=== PATIENT | female | born 1955 | race Caucasian/White ===

== ENCOUNTER 2017-09-28 08:23 | Inpatient (IN) | payer OTHER ==
[~2017-09-28] VITALS: Ht 152.4 cm; Wt 64.5 kg
[~2017-09-28 08:23] MED LIST: ALBU90OI INH; BUSP15 PO; CALCAVITD PO; DOCU100 PO; EPCLUSA 400 MG1 EACH PO; EPIN.3I IM; FLUSAL2505 INH; Omeprazole20 M1 PO; PRED20 PO; ROXICODONE5 MG PO; SPIR50 PO
[2017-09-28 09:01] LABS: BASOPHILS ABSOLUTE AUTO 0.03 K/mm3 (0.00-0.23); BASOPHILS PERCENT AUTO 1 % (0-2); EOSINOPHILS ABSOLUTE AUTO 0.03 K/mm3 (0.00-0.68); EOSINOPHILS PERCENT AUTO 1 % (0-6); Hematocrit 24.4 % (33.0-51.0); Hemoglobin 7.2 g/dL (11.5-16.0); IMMATURE GRAN ABSOLUTE AUTO 0.05 K/mm3 (0.00-0.10); IMMATURE GRAN PERCENT AUTO 1 % (0-1); LYMPHOCYTES ABSOLUTE AUTO 1.23 K/mm3 (0.84-5.20); LYMPHOCYTES PERCENT AUTO 20 % (21-46); MONOCYTES ABSOLUTE AUTO 1.13 K/mm3 (0.16-1.47); MONOCYTES PERCENT AUTO 18 % (4-13); Mean Corpuscular HGB 23.8 pg (26.0-34.0); Mean Corpuscular HGB Conc 29.5 g/dL (31.5-36.5); Mean Corpuscular Volume 81 fL (80-100); Mean Platelet Volume 10.2 fL (9.1-12.4); NEUTROPHILS ABSOLUTE AUTO 3.82 K/mm3 (1.96-9.15); NEUTROPHILS PERCENT AUTO 61 % (41-73); NRBC ABSOLUTE 0.04 K/mm3 (0.00-0.02); NRBC Auto 0.6 /100 WBC (0.0-0.2); Platelet Count 84 K/mm3 (150-400); RDW Coefficient Variation 20.5 % (11.7-14.2); RDW Standard Deviation 59.8 fL (35.1-46.3); Red Blood Cell Count 3.03 M/mm3 (3.80-5.20); White Blood Cell Count 6.29 K/mm3 (4.00-11.30)
[2017-09-28] MEDS ORDERED: Restoril15 MG PO (09:08)
[2017-09-28 09:20] LABS: Alanine Aminotransfer (ALT/SGP 33 U/L (12-78); Albumin/Globulin Ratio 0.7 (0.8-1.8); Alk Phos 112 U/L (50-136); Anion Gap 12 mmol/L (6-16); Aspartate Aminotrans (AST/SGOT 39 U/L (12-37); Bilirubin, Total 1.7 mg/dL (0.1-1.0); Blood Urea Nitrogen 22 mg/dL (8-24); Bun/Creatinine Ratio 44.7 (12.0-20.0); CO2, Blood 20 mmol/L (21-32); Calcium, Blood 8.5 mg/dL (8.5-10.1); Chloride, Blood 109 mmol/L (98-108); Creatinine, Blood 0.49 mg/dL (0.40-1.00); Globulin, Blood 4.4 g/dL (2.2-4.0); Glomerular Filtration Rate >60 (60-); Glucose, Blood 134 mg/dL (70-99); Potassium, Blood 4.1 mmol/L (3.5-5.5); Sodium, Blood 141 mmol/L (136-145); Total Protein, Blood 7.4 g/dL (6.4-8.2)
[2017-09-28 11:10] LABS: International Normalized Ratio 1.6; Prothrombin Time Results 16.9 Sec (9.7-11.5)
[2017-09-28 19:50] LABS: BASOPHILS ABSOLUTE AUTO 0.01 K/mm3 (0.00-0.23); BASOPHILS PERCENT AUTO 0 % (0-2); EOSINOPHILS ABSOLUTE AUTO 0.03 K/mm3 (0.00-0.68); EOSINOPHILS PERCENT AUTO 1 % (0-6); Hematocrit 21.8 % (33.0-51.0); Hemoglobin 6.6 g/dL (11.5-16.0); IMMATURE GRAN ABSOLUTE AUTO 0.03 K/mm3 (0.00-0.10); IMMATURE GRAN PERCENT AUTO 1 % (0-1); LYMPHOCYTES ABSOLUTE AUTO 1.19 K/mm3 (0.84-5.20); LYMPHOCYTES PERCENT AUTO 27 % (21-46); MONOCYTES ABSOLUTE AUTO 0.81 K/mm3 (0.16-1.47); MONOCYTES PERCENT AUTO 19 % (4-13); Mean Corpuscular HGB 24.6 pg (26.0-34.0); Mean Corpuscular HGB Conc 30.3 g/dL (31.5-36.5); Mean Corpuscular Volume 81 fL (80-100); Mean Platelet Volume 9.4 fL (9.1-12.4); NEUTROPHILS ABSOLUTE AUTO 2.31 K/mm3 (1.96-9.15); NEUTROPHILS PERCENT AUTO 53 % (41-73); NRBC ABSOLUTE 0.03 K/mm3 (0.00-0.02); NRBC Auto 0.7 /100 WBC (0.0-0.2); RDW Coefficient Variation 18.9 % (11.7-14.2); RDW Standard Deviation 54.5 fL (35.1-46.3); Red Blood Cell Count 2.68 M/mm3 (3.80-5.20); White Blood Cell Count 4.38 K/mm3 (4.00-11.30)
[2017-09-28 20:34] LABS: Platelet Count 43 K/mm3 (150-400)
[2017-09-29 02:48] LABS: BASOPHILS ABSOLUTE AUTO 0.02 K/mm3 (0.00-0.23); BASOPHILS PERCENT AUTO 1 % (0-2); EOSINOPHILS ABSOLUTE AUTO 0.06 K/mm3 (0.00-0.68); EOSINOPHILS PERCENT AUTO 1 % (0-6); Hematocrit 24.3 % (33.0-51.0); Hemoglobin 7.4 g/dL (11.5-16.0); IMMATURE GRAN ABSOLUTE AUTO 0.03 K/mm3 (0.00-0.10); IMMATURE GRAN PERCENT AUTO 1 % (0-1); LYMPHOCYTES ABSOLUTE AUTO 1.36 K/mm3 (0.84-5.20); LYMPHOCYTES PERCENT AUTO 31 % (21-46); MONOCYTES ABSOLUTE AUTO 0.67 K/mm3 (0.16-1.47); MONOCYTES PERCENT AUTO 15 % (4-13); Mean Corpuscular HGB 24.6 pg (26.0-34.0); Mean Corpuscular HGB Conc 30.5 g/dL (31.5-36.5); Mean Corpuscular Volume 81 fL (80-100); Mean Platelet Volume 9.3 fL (9.1-12.4); NEUTROPHILS ABSOLUTE AUTO 2.22 K/mm3 (1.96-9.15); NEUTROPHILS PERCENT AUTO 51 % (41-73); NRBC ABSOLUTE 0.02 K/mm3 (0.00-0.02); NRBC Auto 0.5 /100 WBC (0.0-0.2); RDW Coefficient Variation 18.6 % (11.7-14.2); RDW Standard Deviation 53.5 fL (35.1-46.3); Red Blood Cell Count 3.01 M/mm3 (3.80-5.20); White Blood Cell Count 4.36 K/mm3 (4.00-11.30)
[2017-09-29 02:52] LABS: Platelet Count 48 K/mm3 (150-400)
[2017-09-29 08:50] LABS: BASOPHILS ABSOLUTE AUTO 0.03 K/mm3 (0.00-0.23); BASOPHILS PERCENT AUTO 1 % (0-2); EOSINOPHILS ABSOLUTE AUTO 0.09 K/mm3 (0.00-0.68); EOSINOPHILS PERCENT AUTO 2 % (0-6); Hematocrit 25.5 % (33.0-51.0); IMMATURE GRAN ABSOLUTE AUTO 0.04 K/mm3 (0.00-0.10); IMMATURE GRAN PERCENT AUTO 1 % (0-1); LYMPHOCYTES ABSOLUTE AUTO 1.18 K/mm3 (0.84-5.20); LYMPHOCYTES PERCENT AUTO 30 % (21-46); MONOCYTES ABSOLUTE AUTO 0.58 K/mm3 (0.16-1.47); MONOCYTES PERCENT AUTO 15 % (4-13); Mean Corpuscular HGB 25.3 pg (26.0-34.0); Mean Corpuscular HGB Conc 31.4 g/dL (31.5-36.5); Mean Corpuscular Volume 81 fL (80-100); NEUTROPHILS PERCENT AUTO 51 % (41-73); NRBC ABSOLUTE 0.02 K/mm3 (0.00-0.02); NRBC Auto 0.5 /100 WBC (0.0-0.2); RDW Coefficient Variation 18.2 % (11.7-14.2); RDW Standard Deviation 52.3 fL (35.1-46.3); Red Blood Cell Count 3.16 M/mm3 (3.80-5.20); White Blood Cell Count 3.92 K/mm3 (4.00-11.30)
[2017-09-29 08:53] LABS: Platelet Count 40 K/mm3 (150-400)
[2017-09-29 15:08] LABS: BASOPHILS ABSOLUTE AUTO 0.03 K/mm3 (0.00-0.23); BASOPHILS PERCENT AUTO 1 % (0-2); EOSINOPHILS ABSOLUTE AUTO 0.08 K/mm3 (0.00-0.68); EOSINOPHILS PERCENT AUTO 2 % (0-6); Hematocrit 27.3 % (33.0-51.0); Hemoglobin 8.6 g/dL (11.5-16.0); IMMATURE GRAN ABSOLUTE AUTO 0.03 K/mm3 (0.00-0.10); IMMATURE GRAN PERCENT AUTO 1 % (0-1); LYMPHOCYTES ABSOLUTE AUTO 1.08 K/mm3 (0.84-5.20); LYMPHOCYTES PERCENT AUTO 29 % (21-46); MONOCYTES ABSOLUTE AUTO 0.59 K/mm3 (0.16-1.47); MONOCYTES PERCENT AUTO 16 % (4-13); Mean Corpuscular HGB 25.4 pg (26.0-34.0); Mean Corpuscular HGB Conc 31.5 g/dL (31.5-36.5); Mean Corpuscular Volume 81 fL (80-100); Mean Platelet Volume 9.8 fL (9.1-12.4); NEUTROPHILS PERCENT AUTO 51 % (41-73); NRBC ABSOLUTE 0.03 K/mm3 (0.00-0.02); NRBC Auto 0.8 /100 WBC (0.0-0.2); RDW Coefficient Variation 18.4 % (11.7-14.2); Red Blood Cell Count 3.38 M/mm3 (3.80-5.20); White Blood Cell Count 3.71 K/mm3 (4.00-11.30)
[2017-09-29 15:15] LABS: Platelet Count 44 K/mm3 (150-400)
[2017-09-30 06:15] LABS: BASOPHILS ABSOLUTE AUTO 0.02 K/mm3 (0.00-0.23); BASOPHILS PERCENT AUTO 1 % (0-2); EOSINOPHILS PERCENT AUTO 4 % (0-6); Hematocrit 25.8 % (33.0-51.0); Hemoglobin 7.9 g/dL (11.5-16.0); IMMATURE GRAN ABSOLUTE AUTO 0.02 K/mm3 (0.00-0.10); IMMATURE GRAN PERCENT AUTO 1 % (0-1); LYMPHOCYTES ABSOLUTE AUTO 0.87 K/mm3 (0.84-5.20); LYMPHOCYTES PERCENT AUTO 31 % (21-46); MONOCYTES ABSOLUTE AUTO 0.44 K/mm3 (0.16-1.47); MONOCYTES PERCENT AUTO 16 % (4-13); Mean Corpuscular HGB 25.2 pg (26.0-34.0); Mean Corpuscular HGB Conc 30.6 g/dL (31.5-36.5); Mean Corpuscular Volume 82 fL (80-100); Mean Platelet Volume 9.8 fL (9.1-12.4); NEUTROPHILS ABSOLUTE AUTO 1.35 K/mm3 (1.96-9.15); NEUTROPHILS PERCENT AUTO 48 % (41-73); RDW Coefficient Variation 19.2 % (11.7-14.2); RDW Standard Deviation 54.4 fL (35.1-46.3); Red Blood Cell Count 3.14 M/mm3 (3.80-5.20)
[2017-09-30 06:23] LABS: Platelet Count 40 K/mm3 (150-400)
[2017-09-30 06:32] LABS: Alanine Aminotransfer (ALT/SGP 27 U/L (12-78); Albumin, Blood 2.5 g/dL (3.4-5.0); Albumin/Globulin Ratio 0.7 (0.8-1.8); Alk Phos 82 U/L (50-136); Anion Gap 8 mmol/L (6-16); Aspartate Aminotrans (AST/SGOT 40 U/L (12-37); Bilirubin, Total 1.3 mg/dL (0.1-1.0); Blood Urea Nitrogen 10 mg/dL (8-24); Bun/Creatinine Ratio 15.8 (12.0-20.0); CO2, Blood 23 mmol/L (21-32); Calcium, Blood 7.7 mg/dL (8.5-10.1); Chloride, Blood 109 mmol/L (98-108); Creatinine, Blood 0.63 mg/dL (0.40-1.00); Globulin, Blood 3.4 g/dL (2.2-4.0); Glomerular Filtration Rate >60 (60-); Glucose, Blood 82 mg/dL (70-99); Magnesium, Blood 1.8 mg/dL (1.6-2.4); Potassium, Blood 3.6 mmol/L (3.5-5.5); Sodium, Blood 140 mmol/L (136-145); Total Protein, Blood 5.9 g/dL (6.4-8.2)
[2017-10-01 04:47] LABS: BASOPHILS ABSOLUTE AUTO 0.03 K/mm3 (0.00-0.23); BASOPHILS PERCENT AUTO 1 % (0-2); EOSINOPHILS ABSOLUTE AUTO 0.09 K/mm3 (0.00-0.68); EOSINOPHILS PERCENT AUTO 3 % (0-6); Hematocrit 27.1 % (33.0-51.0); Hemoglobin 8.3 g/dL (11.5-16.0); IMMATURE GRAN ABSOLUTE AUTO 0.02 K/mm3 (0.00-0.10); IMMATURE GRAN PERCENT AUTO 1 % (0-1); LYMPHOCYTES ABSOLUTE AUTO 0.89 K/mm3 (0.84-5.20); LYMPHOCYTES PERCENT AUTO 32 % (21-46); MONOCYTES ABSOLUTE AUTO 0.44 K/mm3 (0.16-1.47); MONOCYTES PERCENT AUTO 16 % (4-13); Mean Corpuscular HGB 25.3 pg (26.0-34.0); Mean Corpuscular HGB Conc 30.6 g/dL (31.5-36.5); Mean Corpuscular Volume 83 fL (80-100); Mean Platelet Volume 10.2 fL (9.1-12.4); NEUTROPHILS PERCENT AUTO 47 % (41-73); RDW Coefficient Variation 19.8 % (11.7-14.2); RDW Standard Deviation 55.3 fL (35.1-46.3); Red Blood Cell Count 3.28 M/mm3 (3.80-5.20); White Blood Cell Count 2.77 K/mm3 (4.00-11.30)
[2017-10-01 05:12] LABS: Platelet Count 38 K/mm3 (150-400)
[2017-10-01] MEDS ORDERED: PANT40 PO (16:40)
[2017-10-01] MEDS ORDERED: CIPR500 PO (16:41)
[2018-05-26] MEDS ORDERED: BUSP5 PO (13:27)
[2018-05-26] MEDS ORDERED: SOMA250 MG PO (13:28)
[2018-06-07] MEDS ORDERED: LORA.5 PO (14:48)
[2018-06-07] MEDS ORDERED: ALBU90OI INH (14:49)
[2018-06-07] MEDS ORDERED: CYCL10 PO (14:49)
[2018-06-07] MEDS ORDERED: DIPH50 PO (14:50)
[2018-06-07] MEDS ORDERED: Valium5 MG PO (17:02)
[2018-06-07] MEDS ORDERED: Norco 5-325 Ta1 EACH PO (19:09)
== END 2017-10-01 17:13 | disposition home or self-care (01) | DRG 369 ==
LOC: ER 08:23 → MEDS 12:08 → ICUW 12:08 → PCU 09-30 17:31 → MEDS 10-01 10:35
PROVIDERS: Emergency Medicine; Hospitalist; Internal Medicine; Internal Medicine Gastroenterology; Specialist
PROC: 30233N1 Transfusion of Nonautologous Red Blood Cells into Peripheral Vein, Percutaneous Approach (ICD-10-PCS; 2017-09-28)
PROC: 0W3P8ZZ Control Bleeding in Gastrointestinal Tract, Via Natural or Artificial Opening Endoscopic (ICD-10-PCS; principal; 2017-09-28 14:00)
DX: K22.6 Gastro-esophageal laceration-hemorrhage syndrome (principal); D61.818 Other pancytopenia; J90 Pleural effusion, not elsewhere classified; D62 Acute posthemorrhagic anemia; B18.2 Chronic viral hepatitis C; D69.6 Thrombocytopenia, unspecified; K22.2 Esophageal obstruction; K74.60 Unspecified cirrhosis of liver; Z88.0 Allergy status to penicillin; Z90.710 Acquired absence of both cervix and uterus
CPT/HCPCS: 36415; 36430; 76705; 80053; 82105; 82272; 83735; 85025; 85610; 86850; 86900; 86901; 86923; 93005; 93010; 96361; 96365; 96366; 96375; 96376; 99285; C9113; J0696; J2060; J2405; J2765; J7030; J7050; J7120; P9016

== ENCOUNTER 2020-06-20 10:52 | Emergency (ER) | payer OTHER ==
[~2020-06-20] VITALS: Ht 152.4 cm; Wt 55.8 kg
[~2020-06-20 10:52] MED LIST changes: +BUSP5 PO; +CIPR500 PO; +CYCL10 PO; +DIPH50 PO; +LORA.5 PO; +Norco 5-325 Ta1 EACH PO; +PANT40 PO; +Restoril15 MG PO; +SOMA250 MG PO; +Valium5 MG PO
[2020-06-20] MEDS ORDERED: Zanaflex2 M1 PO (13:42)
[2020-06-20] MEDS ORDERED: OMEP20ER PO (13:43)
[2020-06-20] MEDS ORDERED: Roxicodone5 MG PO (14:25)
[2020-06-20] MEDS ORDERED: Miralax17 GM PO (14:25)
== END 2020-06-20 15:40 | disposition home or self-care (01) ==
LOC: ER 10:52
DX: S12.110A Anterior displaced Type II dens fracture, initial encounter for closed fracture (principal); J90 Pleural effusion, not elsewhere classified; Z91.030 Bee allergy status; Z88.0 Allergy status to penicillin; Z79.899 Other long term (current) drug therapy; W19.XXXA Unspecified fall, initial encounter; Y93.89 Activity, other specified
CPT/HCPCS: 36415; 70450; 71045; 72125; 96374; 96375; 99284-25; J1170; J2060; L0160

== ENCOUNTER 2020-09-05 00:21 | Day surgery (SDC) | payer OTHER ==
[~2020-09-05 00:21] MED LIST changes: +Miralax17 GM PO; +OMEP20ER PO; +Roxicodone5 MG PO; +Zanaflex2 M1 PO
== END 2020-09-05 23:45 ==
LOC: WOUND 00:21
DX: L89.104 Pressure ulcer of unspecified part of back, stage 4 (principal); J45.909 Unspecified asthma, uncomplicated; S12.110D Anterior displaced Type II dens fracture, subsequent encounter for fracture with routine healing; W19.XXXD Unspecified fall, subsequent encounter; Z86.19 Personal history of other infectious and parasitic diseases; Z88.0 Allergy status to penicillin
CPT/HCPCS: A9270; G0463

== ENCOUNTER 2020-09-14 00:36 | Day surgery (SDC) | payer OTHER | END 2020-09-14 22:51 | disposition home or self-care (01) | LOC: WOUND 00:36 | DX: L89.104 Pressure ulcer of unspecified part of back, stage 4 (principal); L89.102 Pressure ulcer of unspecified part of back, stage 2; S12.110D Anterior displaced Type II dens fracture, subsequent encounter for fracture with routine healing | CPT/HCPCS: A9270 ==

== ENCOUNTER 2020-09-21 00:31 | Day surgery (SDC) | payer OTHER | END 2020-09-21 23:51 | disposition home or self-care (01) | LOC: WOUND 00:31 | DX: L89.104 Pressure ulcer of unspecified part of back, stage 4 (principal); L89.102 Pressure ulcer of unspecified part of back, stage 2; S12.110D Anterior displaced Type II dens fracture, subsequent encounter for fracture with routine healing; Z88.0 Allergy status to penicillin; X58.XXXD Exposure to other specified factors, subsequent encounter | CPT/HCPCS: A9270 ==

== ENCOUNTER 2020-09-28 00:18 | Day surgery (SDC) | payer OTHER | END 2020-09-28 23:46 | disposition home or self-care (01) | LOC: WOUND 00:18 | DX: L89.104 Pressure ulcer of unspecified part of back, stage 4 (principal); L89.102 Pressure ulcer of unspecified part of back, stage 2; S12.110D Anterior displaced Type II dens fracture, subsequent encounter for fracture with routine healing; D64.9 Anemia, unspecified; J45.998 Other asthma; Z86.19 Personal history of other infectious and parasitic diseases; X58.XXXD Exposure to other specified factors, subsequent encounter | CPT/HCPCS: 87070; 87075; 87077; 87186; 87205; A9270 ==

== ENCOUNTER 2020-10-12 00:23 | Day surgery (SDC) | payer OTHER | END 2020-10-12 22:59 | disposition home or self-care (01) | LOC: WOUND 00:23 | DX: L89.92 Pressure ulcer of unspecified site, stage 2 (principal); S12.110D Anterior displaced Type II dens fracture, subsequent encounter for fracture with routine healing; X58.XXXD Exposure to other specified factors, subsequent encounter | CPT/HCPCS: G0463 ==

== ENCOUNTER 2020-10-20 00:42 | Day surgery (SDC) | payer OTHER | END 2020-10-20 22:44 | disposition home or self-care (01) | LOC: WOUND 00:42 | DX: L89.104 Pressure ulcer of unspecified part of back, stage 4 (principal); L89.102 Pressure ulcer of unspecified part of back, stage 2; S12.110D Anterior displaced Type II dens fracture, subsequent encounter for fracture with routine healing; X58.XXXD Exposure to other specified factors, subsequent encounter | CPT/HCPCS: A9270 ==

== ENCOUNTER 2020-10-25 00:25 | Day surgery (SDC) | payer OTHER | END 2020-10-25 22:41 | disposition home or self-care (01) | LOC: WOUND 00:25 | DX: L89.104 Pressure ulcer of unspecified part of back, stage 4 (principal); S12.110D Anterior displaced Type II dens fracture, subsequent encounter for fracture with routine healing; X58.XXXD Exposure to other specified factors, subsequent encounter | CPT/HCPCS: A9270; G0463 ==

== ENCOUNTER 2020-11-01 01:37 | Day surgery (SDC) | payer OTHER | END 2020-11-01 23:03 | disposition home or self-care (01) | LOC: WOUND 01:37 | DX: L89.104 Pressure ulcer of unspecified part of back, stage 4 (principal); L89.102 Pressure ulcer of unspecified part of back, stage 2; S12.110D Anterior displaced Type II dens fracture, subsequent encounter for fracture with routine healing; B19.20 Unspecified viral hepatitis C without hepatic coma; K74.60 Unspecified cirrhosis of liver; J45.909 Unspecified asthma, uncomplicated; X58.XXXD Exposure to other specified factors, subsequent encounter | CPT/HCPCS: A9270; G0463 ==

== ENCOUNTER 2020-11-14 09:15 | Day surgery (SDC) | payer OTHER | END 2020-11-14 23:18 | disposition home or self-care (01) | LOC: WOUND 09:15 | DX: L89.92 Pressure ulcer of unspecified site, stage 2 (principal); S12.110D Anterior displaced Type II dens fracture, subsequent encounter for fracture with routine healing; X58.XXXD Exposure to other specified factors, subsequent encounter | CPT/HCPCS: A9270; G0463 ==

== ENCOUNTER 2020-11-21 00:08 | Day surgery (SDC) | payer OTHER | END 2020-11-21 22:59 | disposition home or self-care (01) | LOC: WOUND 00:08 | DX: L89.92 Pressure ulcer of unspecified site, stage 2 (principal); S12.110D Anterior displaced Type II dens fracture, subsequent encounter for fracture with routine healing; X58.XXXD Exposure to other specified factors, subsequent encounter | CPT/HCPCS: A9270 ==

== ENCOUNTER 2020-12-05 01:24 | Day surgery (SDC) | payer OTHER | END 2020-12-05 23:00 | disposition home or self-care (01) | LOC: WOUND 01:24 | DX: L89.104 Pressure ulcer of unspecified part of back, stage 4 (principal); S12.110D Anterior displaced Type II dens fracture, subsequent encounter for fracture with routine healing; X58.XXXD Exposure to other specified factors, subsequent encounter | CPT/HCPCS: A9270; G0463 ==